=== PATIENT | female | born 1995 | race Caucasian/White ===

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

== ENCOUNTER → 2017-11-12 | Outpatient (CLI) | payer OTHER | LOC: FIMAGING 14:56 | PROVIDERS: ATTEND Physician Assistant Medical | DX: N63.20 Unspecified lump in the left breast, unspecified quadrant (principal); J35.3 Hypertrophy of tonsils with hypertrophy of adenoids ==

== ENCOUNTER → 2018-08-05 | Outpatient (CLI) | payer OTHER | LOC: FIMAGING 09:01 | PROVIDERS: ATTEND Physician Assistant Medical | DX: N63.20 Unspecified lump in the left breast, unspecified quadrant (principal) ==